=== PATIENT | male | born 1945 | race Caucasian/White ===

== ENCOUNTER 2020-08-06 09:39 | Inpatient (IN) | payer MEDICARE ==
[2020-08-06] MEDS ORDERED: Albumin 5% 500 ML ONE (10:05)
[2020-08-06] MEDS ORDERED: Communication Order-Pharmacy FS ONE (10:12)
[2020-08-06] MEDS ORDERED: Mannitol 12.5 GM/50 ML ONE (11:14)
[2020-08-06] MEDS ORDERED: Potassium Chloride 60 MEQ/30 ML VIAL ONE (11:14)
[2020-08-06] MEDS ORDERED: Vecuronium 10 MG VIAL ONE (11:14)
[2020-08-06] MEDS ORDERED: Succinylcholine 200 MG/10 ml SYRINGE FS ONE (11:14)
[2020-08-06] MEDS ORDERED: Heparin 5,000 UNITS/ML VIAL ONE (11:14)
[2020-08-06] MEDS ORDERED: Heparin 30,000 units/30 ml VIAL ONE (11:14)
[2020-08-06] MEDS ORDERED: PROPOFOL 200 MG/20 ML VIAL ONE (11:14)
[2020-08-06] MEDS ORDERED: Papaverine 60 MG/2 ML VIAL ONE (11:14)
[2020-08-06] MEDS ORDERED: Protamine Sulfate 250 MG/25 ML VIAL ONE (11:14)
[2020-08-06] MEDS ORDERED: Thrombin 5000 UNITS/5 ML VIAL ONE (11:14)
[2020-08-06] MEDS ORDERED: Lidocaine 2% PF 100 mg/5 ml Syringe ONE (11:14)
[2020-08-06] MEDS ORDERED: Cardioplegic Soln 1,000 ML BAG ONE (11:14)
[2020-08-06] MEDS ORDERED: Sodium Bicarb 50 MEQ/50 ML Abboject 8.4% SYRINGE ONE (11:14)
[2020-08-06] MEDS ORDERED: Rocuronium Bromide 10 MG/ML (10ML VIAL) ONE (11:14)
[2020-08-06] MEDS ORDERED: Calcium Chloride 1 GM/10 ML Abboject SYRINGE ONE (11:14)
[2020-08-06] MEDS ORDERED: Aminocaproic Acid 5 GM/20 ML VIAL ONE (11:14)
[2020-08-06] MEDS ORDERED: Magnesium Sulfate 1 GM/2 ML VIAL ONE (11:14)
[2020-08-06] MEDS ORDERED: Midazolam HCl 5 mg/5 ml Vial ONE ×2 (11:17→13:54)
[2020-08-06] MEDS ORDERED: Fentanyl 250 MCG/5 ML VIAL ONE (11:17)
[2020-08-06] MEDS ORDERED: PHENYLEPHRINE-NS 100 MCG/ML 10 ML SYRINGE ONE (12:56)
[2020-08-06] MEDS ORDERED: hydrALAZINE 20 MG/ML VIAL SLOW IVP PRN (14:48)
[2020-08-06] MEDS ORDERED: Acetaminophen 325 MG TAB PO PRN (14:48)
[2020-08-06] MEDS ORDERED: Norepinephrine 8 MG/0.9% NS 250 ML IVPB PRN (14:48)
[2020-08-06] MEDS ORDERED: Guaifenesin DM 100-10/5 ML UDCUP PO PRN (14:48)
[2020-08-06] MEDS ORDERED: Promethazine HCl 25 MG/ML VIAL IM PRN (14:48)
[2020-08-06] MEDS ORDERED: Mag-Al 1200 mg/1200 mg/30 ML UDCUP PO PRN (14:48)
[2020-08-06] MEDS ORDERED: Post-Op Insulin Drip Protocol IVPB ONE (14:48)
[2020-08-06] MEDS ORDERED: niCARdipine 25 MG in Sodium Chloride 0.9% 250 ML 240 ML IVPB PRN (14:48)
[2020-08-06] MEDS ORDERED: Nitroglycerin 50 MG/250 ML BOT 250 ML IVPB PRN (14:48)
[2020-08-06] MEDS ORDERED: Fentanyl 100 MCG/2 ML VIAL SLOW IVP PRN ×2 (14:48)
[2020-08-06] MEDS ORDERED: Bisacodyl 5 MG TAB PO PRN (14:48)
[2020-08-06] MEDS ORDERED: DOPamine 400 MG/D5W 250 ML 250 ML IVPB PRN (14:48)
[2020-08-06] MEDS ORDERED: Bisacodyl 10 MG SUPP PR PRN (14:48)
[2020-08-06] MEDS ORDERED: Hetastarch 6% 500 ML 500 ML IVPB PRN (14:48)
[2020-08-06] MEDS ORDERED: Magnesium 2 GM/50 ML 2 GM in Premix Bag 1 BAG IVPB SCH (15:00)
[2020-08-06 15:17] LABS: Actual Bicarbonate (HCO3a) 22.9 mEq/L (22-28); Base Excess (BEa) -3.1 mEq/L (-2.0 to +3.0); CO2 Tension 44.2 mmHg (35.0-45.0); Calcium, Ionized (arterial) 1.05 mmol/L (1.12-1.30); Carboxyhemoglobin (COHb) 0.6 gm% (0.0-3.0); Hemoglobin (Hb) 14.6 g/dL (14.0-18.0); O2 Tension (PaO2), arterial 110.8 mmHg (> 70.0); Potassium - ABG Lab 3.46 mmol/L (3.70-5.30); pH, Arterial 7.33 (7.35-7.45)
[2020-08-06 15:20] LABS: Puncture Site Arterial Line
[2020-08-06] MEDS: Lactated Ringer's 1,000 ML IV SCH (15:27)
[2020-08-06] MEDS: CEFAZOLIN 2 GM in Premix Bag 1 BAG IVPB SCH ×2 (15:30→22:53)
[2020-08-06 15:33] LABS: #Basophils 0.1 thou/uL (0.0-0.2); #Eosinphils 0.3 thou/uL (0.0-0.7); #Lymphocytes 1.6 thou/uL (1.20-3.40); #Monocytes 0.7 thou/uL (0.11-0.59); #Neutrophils 11.5 thou/uL (1.40-6.50); %Basophils 0.6 % (0.0-1.0); %Eosinophils 2.1 % (0.0-10.0); %Lymphocytes 11.6 % (21.0-51.0); %Monocytes 4.7 % (0.0-10.0); %Neutrophils 81.1 % (42.0-75.0); Hemoglobin 14.1 g/dL (14.0-18.0); Mean Corpuscular HGB CONC 34.4 g/dL (32.0-36.0); Mean Corpuscular Volume 95.9 fL (78.0-98.0); Mean Platelet Volume 8.1 fL (7.4-10.4); Platelet Count 115 thou/uL (130-400); RBC Distribution Width 12.1 % (11.5-14.5); Red Blood Cell (RBC) Count 4.28 mill/uL (4.70-6.10); White Blood Cell (WBC) Count 14.2 thou/uL (4.8-10.8)
[2020-08-06 15:44] LABS: INR-International Normal Ratio 1.3; PTT 33.2 sec (22.9-36.1); Prothrombin Time 16.6 sec (12.0-14.7)
[2020-08-06 15:49] LABS: Platelet Morphology Comment Appears Decreased; RBC Morphology Normal
[2020-08-06] MEDS: Morphine 2 MG/ML VIAL SLOW IVP PRN ×2 (15:49→18:07)
[2020-08-06 15:50] LABS: Anion Gap 11 mmol/L (10-20); BUN (Urea Nitrogen) 8 mg/dL (8.4-25.7); Calc. Creatinine Clearance 134 mL/min (70-130); Calcium 7.4 mg/dL (7.8-10.44); Carbon Dioxide 24 mmol/L (23-31); Chloride 110 mmol/L (98-107); Glucose 140 mg/dL (83-110); Potassium 3.5 mmol/L (3.5-5.1); Sodium 141 mmol/L (136-145)
[2020-08-06] MEDS ORDERED: HUMULIN R 100 UNITS in Sodium Chloride 0.9% 100 ML IVPB SCH (16:15)
[2020-08-06] MEDS ORDERED: Insulin Regular 300 UNITS/3 ML VIAL SC PRN (16:15)
[2020-08-06] MEDS ORDERED: Dextrose 50% Abboject 50 ML SYRINGE SLOW IVP PRN (16:15)
[2020-08-06] MEDS ORDERED: Dextrose 5% in Water 1,000 ML IV PRN (16:15)
[2020-08-06] MEDS: Ketorolac Tromethamine 30 MG/ML VIAL IVP SCH ×2 (17:58→22:53)
[2020-08-06 18:19] LABS: Actual Bicarbonate (HCO3a) 20.8 mEq/L (22-28); Base Excess (BEa) -3.6 mEq/L (-2.0 to +3.0); CO2 Tension 36.3 mmHg (35.0-45.0); Calcium, Ionized (arterial) 1.06 mmol/L (1.12-1.30); Carboxyhemoglobin (COHb) 0.8 gm% (0.0-3.0); Hemoglobin (Hb) 15.3 g/dL (14.0-18.0); O2 Tension (PaO2), arterial 85.6 mmHg (> 70.0); Potassium - ABG Lab 3.34 mmol/L (3.70-5.30); pH, Arterial 7.38 (7.35-7.45)
[2020-08-06 18:35] LABS: ALV-art Gradient 154.225 mmHg (0-20); Puncture Site Arterial Line
[2020-08-06] MEDS: HYDROcodone/Acetaminophen 5/325 mg Tablet PO PRN (19:18)
[2020-08-06] MEDS: Ondansetron PF 4 MG/2 ML Vial IVP PRN (19:19)
[2020-08-06] MEDS: Potassium Chloride 20 MEQ/100 ML PREMIX BAG IVPB PRN (19:19)
[2020-08-06 20:49] LABS: Hemoglobin 14.6 g/dL (14.0-18.0)
[2020-08-06 20:57] LABS: Potassium 3.8 mmol/L (3.5-5.1)
[2020-08-06] MEDS ORDERED: Pantoprazole 40 MG VIAL IVP SCH (21:00)
[2020-08-06] MEDS ORDERED: Famotidine/PF 20 mg/2ml Vial SLOW IVP SCH (21:00)
[2020-08-06] MEDS ORDERED: Atorvastatin Calcium 20 MG TAB PO SCH (21:00)
[2020-08-07] MEDS: HYDROcodone/Acetaminophen 5/325 mg Tablet PO PRN ×2 (02:07→09:13)
[2020-08-07 04:43] LABS: Anion Gap 9 mmol/L (10-20); BUN (Urea Nitrogen) 10 mg/dL (8.4-25.7); Calc. Creatinine Clearance 125 mL/min (70-130); Calcium 8.2 mg/dL (7.8-10.44); Carbon Dioxide 27 mmol/L (23-31); Cardiac Risk 3.5 (Less than 4.5); Chloride 107 mmol/L (98-107); Cholesterol 114 mg/dl (< 200 Desired); Glucose 124 mg/dL (83-110); HDL Cholesterol 33 mg/dL (>60 Neg Risk); LDL Cholesterol, Calculated 61 mg/dL; Potassium 3.5 mmol/L (3.5-5.1); Sodium 139 mmol/L (136-145); Triglycerides 100 mg/dL (Less than 150)
[2020-08-07 04:52] LABS: #Lymphocytes 0.8 thou/uL (1.20-3.40); #Monocytes 0.5 thou/uL (0.11-0.59); #Neutrophils 8.6 thou/uL (1.40-6.50); %Basophils 0.3 % (0.0-1.0); %Eosinophils 0.1 % (0.0-10.0); %Lymphocytes 8.2 % (21.0-51.0); %Monocytes 4.8 % (0.0-10.0); %Neutrophils 86.6 % (42.0-75.0); Hemoglobin 18.3 g/dL (14.0-18.0); Mean Corpuscular HGB CONC 30.8 g/dL (32.0-36.0); Mean Corpuscular Hemoglobin 29.7 pg (27.0-31.0); Mean Corpuscular Volume 96.5 fL (78.0-98.0); Mean Platelet Volume 8.7 fL (7.4-10.4); Platelet Count 69 thou/uL (130-400); RBC Distribution Width 12.6 % (11.5-14.5); Red Blood Cell (RBC) Count 6.15 mill/uL (4.70-6.10); White Blood Cell (WBC) Count 9.9 thou/uL (4.8-10.8)
[2020-08-07 05:34] LABS: #Lymphocytes 1.1 thou/uL (1.20-3.40); #Neutrophils 12.2 thou/uL (1.40-6.50); %Basophils 0.2 % (0.0-1.0); %Eosinophils 0.1 % (0.0-10.0); %Lymphocytes 7.4 % (21.0-51.0); %Monocytes 6.8 % (0.0-10.0); %Neutrophils 85.5 % (42.0-75.0); Hemoglobin 13.6 g/dL (14.0-18.0); Mean Corpuscular Hemoglobin 31.8 pg (27.0-31.0); Mean Corpuscular Volume 96.2 fL (78.0-98.0); Mean Platelet Volume 8.2 fL (7.4-10.4); Platelet Count 161 thou/uL (130-400); RBC Distribution Width 12.4 % (11.5-14.5); Red Blood Cell (RBC) Count 4.29 mill/uL (4.70-6.10); White Blood Cell (WBC) Count 14.3 thou/uL (4.8-10.8)
[2020-08-07] MEDS: Ketorolac Tromethamine 30 MG/ML VIAL IVP SCH ×3 (05:34→17:17)
[2020-08-07] MEDS: Lactated Ringer's 1,000 ML IV SCH (05:34)
[2020-08-07] MEDS: Ondansetron PF 4 MG/2 ML Vial IVP PRN ×2 (05:35→14:42)
[2020-08-07] MEDS: Potassium Chloride 20 MEQ/100 ML PREMIX BAG IVPB PRN (05:44)
[2020-08-07 05:56] VITALS: BMI 33.6
[2020-08-07] MEDS ORDERED: Nitroglycerin 0.4 MG TAB (25 Tab Bottle) SL PRN (07:42)
[2020-08-07] MEDS ORDERED: Aspirin 325 MG TAB PO SCH (09:00)
[2020-08-07] MEDS: CEFAZOLIN 2 GM in Premix Bag 1 BAG IVPB SCH (09:13)
[2020-08-07] MEDS: Metoprolol Tartrate 25 MG TAB PO SCH ×2 (09:14→20:58)
[2020-08-07] MEDS: Polyethylene Glycol 3350 17 GM Packet PO SCH (09:16)
[2020-08-07] MEDS: Aspirin 325 mg Enteric Coated Tablet PO SCH (09:16)
[2020-08-07] MEDS: Valsartan 80 MG TAB PO SCH ×2 (09:16→20:59)
[2020-08-07] MEDS: Famotidine 20 MG TAB PO SCH ×2 (09:16→20:59)
[2020-08-07 10:55] LABS: Base Excess (BEa) -0.6 mEq/L (-2.0 to +3.0); CO2 Tension 39.3 mmHg (35.0-45.0); Hemoglobin (Hb) 14.8 g/dL (14.0-18.0)
[2020-08-07 10:56] LABS: Analyzer IN Cardio OR; Calcium, Ionized (arterial) 1.06 mmol/L (1.12-1.30); Carboxyhemoglobin (COHb) 1.2 gm% (0.0-3.0); Potassium - ABG Lab 3.69 mmol/L (3.70-5.30)
[2020-08-07 10:56] LABS: Actual Bicarbonate (HCO3a) 24.1 mEq/L (22-28); Analyzer IN Cardio OR; Base Excess (BEa) -0.7 mEq/L (-2.0 to +3.0); CO2 Tension 40.2 mmHg (35.0-45.0); Calcium, Ionized (arterial) 1.09 mmol/L (1.12-1.30); Hemoglobin (Hb) 14.6 g/dL (14.0-18.0); Potassium - ABG Lab 3.61 mmol/L (3.70-5.30)
[2020-08-07 11:00] LABS: Actual Bicarbonate (HCO3a) 26.2 mEq/L (22-28); Analyzer IN Cardio OR; Base Excess (BEa) 0.6 mEq/L (-2.0 to +3.0); CO2 Tension 46.6 mmHg (35.0-45.0); Calcium, Ionized (arterial) 0.97 mmol/L (1.12-1.30); Carboxyhemoglobin (COHb) 0.3 gm% (0.0-3.0); Hemoglobin (Hb) 10.8 g/dL (14.0-18.0); pH, Arterial 7.37 (7.35-7.45)
[2020-08-07 11:00] LABS: Actual Bicarbonate (HCO3a) 25.5 mEq/L (22-28); Analyzer IN Cardio OR; Base Excess (BEa) 0.6 mEq/L (-2.0 to +3.0); CO2 Tension 42.2 mmHg (35.0-45.0); Calcium, Ionized (arterial) 1.01 mmol/L (1.12-1.30); Carboxyhemoglobin (COHb) 0.2 gm% (0.0-3.0); Hemoglobin (Hb) 11.8 g/dL (14.0-18.0); O2 Tension (PaO2), arterial 422.2 mmHg (> 70.0); Potassium - ABG Lab 4.93 mmol/L (3.70-5.30)
[2020-08-07 11:01] LABS: Actual Bicarbonate (HCO3a) 21.1 mEq/L (22-28); Analyzer IN Cardio OR; Base Excess (BEa) -3.4 mEq/L (-2.0 to +3.0); CO2 Tension 36.4 mmHg (35.0-45.0); Calcium, Ionized (arterial) 1.03 mmol/L (1.12-1.30); Hemoglobin (Hb) 13.2 g/dL (14.0-18.0); O2 Tension (PaO2), arterial 202.8 mmHg (> 70.0); Potassium - ABG Lab 3.46 mmol/L (3.70-5.30); pH, Arterial 7.38 (7.35-7.45)
[2020-08-07 11:06] LABS: Puncture Site Arterial Line
[2020-08-07 11:14] LABS: Puncture Site Arterial Line
[2020-08-07 11:14] LABS: Puncture Site Arterial Line
[2020-08-07 11:17] LABS: Puncture Site Arterial Line
[2020-08-07 11:17] LABS: Puncture Site Arterial Line
[2020-08-07] MEDS: Atorvastatin Calcium 20 MG TAB PO SCH (21:00)
[2020-08-07] MEDS ORDERED: Simvastatin 40 MG TAB PO SCH (21:00)
[2020-08-08] MEDS: Ketorolac Tromethamine 30 MG/ML VIAL IVP SCH ×4 (00:11→17:04)
[2020-08-08 04:42] LABS: Mean Corpuscular Hemoglobin 32.6 pg (27.0-31.0); Mean Corpuscular Volume 95.9 fL (78.0-98.0); RBC Distribution Width 12.3 % (11.5-14.5); Red Blood Cell (RBC) Count 3.68 mill/uL (4.70-6.10); White Blood Cell (WBC) Count 10.9 thou/uL (4.8-10.8)
[2020-08-08 04:49] LABS: Anion Gap 10 mmol/L (10-20); BUN (Urea Nitrogen) 19 mg/dL (8.4-25.7); Calc. Creatinine Clearance 106 mL/min (70-130); Calcium 8.1 mg/dL (7.8-10.44); Carbon Dioxide 25 mmol/L (23-31); Chloride 104 mmol/L (98-107); Glucose 107 mg/dL (83-110); Potassium 3.4 mmol/L (3.5-5.1); Sodium 136 mmol/L (136-145)
[2020-08-08 04:57] LABS: #Lymphocytes 1.7 thou/uL (1.20-3.40); #Monocytes 0.9 thou/uL (0.11-0.59); #Neutrophils 8.2 thou/uL (1.40-6.50); %Basophils 0.3 % (0.0-1.0); %Eosinophils 0.3 % (0.0-10.0); %Lymphocytes 15.8 % (21.0-51.0); %Monocytes 8.3 % (0.0-10.0); %Neutrophils 75.3 % (42.0-75.0); Mean Platelet Volume 8.3 fL (7.4-10.4); Platelet Count 105 thou/uL (130-400)
[2020-08-08] MEDS: Famotidine 20 MG TAB PO SCH ×2 (08:48→21:36)
[2020-08-08] MEDS: Potassium Chloride 10 MEQ TAB PO SCH (08:48)
[2020-08-08] MEDS: Polyethylene Glycol 3350 17 GM Packet PO SCH (08:48)
[2020-08-08] MEDS: Allopurinol 100 MG TAB PO SCH (08:48)
[2020-08-08] MEDS: Metoprolol Tartrate 25 MG TAB PO SCH ×2 (08:49→21:36)
[2020-08-08] MEDS: Aspirin 325 mg Enteric Coated Tablet PO SCH (08:49)
[2020-08-08] MEDS: Valsartan 80 MG TAB PO SCH ×2 (08:49→21:37)
[2020-08-08] MEDS: Furosemide 40 MG TAB PO SCH (08:49)
[2020-08-08] MEDS: Fluticasone Propionate Nasal Spray 16 gm Bottle NASAL SCH (08:50)
[2020-08-08] MEDS ORDERED: Bisacodyl 5 MG TAB PO SCH (10:45)
[2020-08-08] MEDS: HYDROcodone/Acetaminophen 5/325 mg Tablet PO PRN (15:16)
[2020-08-08] MEDS ORDERED: Magnesium Citrate 300 ML BOT PO SCH (18:00)
[2020-08-08] MEDS: Atorvastatin Calcium 20 MG TAB PO SCH (21:36)
[2020-08-08] MEDS: Montelukast Sodium 10 mg Tablet PO SCH (21:36)
[2020-08-09] MEDS: Ketorolac Tromethamine 30 MG/ML VIAL IVP SCH ×4 (00:28→17:28)
[2020-08-09] MEDS ORDERED: Magnesium Citrate 300 ML BOT PO SCH (09:00)
[2020-08-09] MEDS: Allopurinol 100 MG TAB PO SCH (09:30)
[2020-08-09] MEDS: Furosemide 40 MG TAB PO SCH (09:30)
[2020-08-09] MEDS: Famotidine 20 MG TAB PO SCH ×2 (09:30→20:09)
[2020-08-09] MEDS: Valsartan 80 MG TAB PO SCH ×2 (09:30→20:10)
[2020-08-09] MEDS: Potassium Chloride 10 MEQ TAB PO SCH (09:30)
[2020-08-09] MEDS: Fluticasone Propionate Nasal Spray 16 gm Bottle NASAL SCH (09:31)
[2020-08-09] MEDS: Polyethylene Glycol 3350 17 GM Packet PO SCH (09:31)
[2020-08-09] MEDS: Aspirin 325 mg Enteric Coated Tablet PO SCH (09:31)
[2020-08-09] MEDS: Metoprolol Tartrate 25 MG TAB PO SCH ×2 (09:31→20:10)
[2020-08-09] MEDS: Atorvastatin Calcium 20 MG TAB PO SCH (20:10)
[2020-08-09] MEDS: Montelukast Sodium 10 mg Tablet PO SCH (20:10)
[2020-08-10 04:58] LABS: #Basophils 0.1 thou/uL (0.0-0.2); #Eosinphils 0.5 thou/uL (0.0-0.7); #Lymphocytes 1.7 thou/uL (1.20-3.40); #Monocytes 0.7 thou/uL (0.11-0.59); #Neutrophils 4.8 thou/uL (1.40-6.50); %Basophils 0.7 % (0.0-1.0); %Eosinophils 6.7 % (0.0-10.0); %Lymphocytes 22.5 % (21.0-51.0); %Monocytes 8.9 % (0.0-10.0); %Neutrophils 61.3 % (42.0-75.0); Hemoglobin 11.6 g/dL (14.0-18.0); Mean Corpuscular HGB CONC 35.1 g/dL (32.0-36.0); Mean Corpuscular Hemoglobin 33.6 pg (27.0-31.0); Mean Corpuscular Volume 95.8 fL (78.0-98.0); Mean Platelet Volume 8.4 fL (7.4-10.4); Platelet Count 134 thou/uL (130-400); RBC Distribution Width 12.1 % (11.5-14.5); Red Blood Cell (RBC) Count 3.47 mill/uL (4.70-6.10); White Blood Cell (WBC) Count 7.8 thou/uL (4.8-10.8)
[2020-08-10 05:17] LABS: Anion Gap 12 mmol/L (10-20); BUN (Urea Nitrogen) 15 mg/dL (8.4-25.7); Calc. Creatinine Clearance 121 mL/min (70-130); Carbon Dioxide 25 mmol/L (23-31); Chloride 103 mmol/L (98-107); Potassium 3.6 mmol/L (3.5-5.1); Sodium 136 mmol/L (136-145)
[2020-08-10 05:18] LABS: Calcium 8.5 mg/dL (7.8-10.44); Glucose 93 mg/dL (83-110)
[2020-08-10] MEDS: Furosemide 40 MG TAB PO SCH (08:06)
[2020-08-10] MEDS: Potassium Chloride 10 MEQ TAB PO SCH (08:06)
[2020-08-10] MEDS: Aspirin 325 mg Enteric Coated Tablet PO SCH (08:06)
[2020-08-10] MEDS: Allopurinol 100 MG TAB PO SCH (08:06)
[2020-08-10] MEDS: Valsartan 80 MG TAB PO SCH (08:06)
[2020-08-10] MEDS: Metoprolol Tartrate 25 MG TAB PO SCH (08:06)
[2020-08-10] MEDS: Famotidine 20 MG TAB PO SCH (08:06)
[2020-08-10] MEDS: Polyethylene Glycol 3350 17 GM Packet PO SCH (08:07)
[2020-08-10] MEDS: Fluticasone Propionate Nasal Spray 16 gm Bottle NASAL SCH (08:07)
[2020-08-10 11:25] VITALS: BP 173/75; TEMP 98.6
== END 2020-08-10 13:00 | disposition home or self-care (01) | DRG 236 ==
LOC: CCU 10:02 → 2NO 08-07 15:41
PROVIDERS: ADMIT Internal Medicine; ATTEND Internal Medicine
PROC: 02100Z9 Bypass Coronary Artery, One Artery from Left Internal Mammary, Open Approach (ICD-10-PCS; principal; 2020-08-06)
PROC: 021109W Bypass Coronary Artery, Two Arteries from Aorta with Autologous Venous Tissue, Open Approach (ICD-10-PCS; 2020-08-06)
PROC: 06BP4ZZ Excision of Right Saphenous Vein, Percutaneous Endoscopic Approach (ICD-10-PCS; 2020-08-06)
PROC: 5A1221Z Performance of Cardiac Output, Continuous (ICD-10-PCS; 2020-08-06)
DX: I25.110 Atherosclerotic heart disease of native coronary artery with unstable angina pectoris (principal); I24.9 Acute ischemic heart disease, unspecified; Z20.822 Contact with and (suspected) exposure to COVID-19; E78.5 Hyperlipidemia, unspecified; G47.33 Obstructive sleep apnea (adult) (pediatric); K21.9 Gastro-esophageal reflux disease without esophagitis; M10.9 Gout, unspecified; I10 Essential (primary) hypertension; E78.00 Pure hypercholesterolemia, unspecified; J30.2 Other seasonal allergic rhinitis; Z95.5 Presence of coronary angioplasty implant and graft; Z88.1 Allergy status to other antibiotic agents; Z79.899 Other long term (current) drug therapy; Z79.82 Long term (current) use of aspirin; I25.2 Old myocardial infarction; Z85.46 Personal history of malignant neoplasm of prostate; Z99.89 Dependence on other enabling machines and devices; Z87.891 Personal history of nicotine dependence; K59.00 Constipation, unspecified; R00.8 Other abnormalities of heart beat
CPT/HCPCS: 36415; 36416; 36430; 71045; 80048; 80061; 82805; 84132; 85025; 85610; 85730; 86850; 86900; 86901; 93005; 93010; 93459; 93798; 94002; 94150; 99152; 99153; J0153; J0360; J0690; J1644; J1815; J1885; J2001; J2150; J2250; J2270; J2405; J2440; J2704; J2720; J3010; J3370; J3475; J3480; J3490; J7050; P9045; S0017; S0028; U0003; U0005